=== PATIENT | female | born 1940 | race Asian ===

== ENCOUNTER 2017-11-14 15:14 | Observation (INO) | payer OTHER ==
[~2017-11-14] VITALS: Ht 157.5 cm; Wt 60.9 kg
[2017-11-14] MEDS ORDERED: ONDANSETRON ODT 4 MG PO ONE (16:00)
[2017-11-14 16:09] LABS: BASOPHILS # (AUTO) 0.04 x10^3/uL (0-0.1); BASOPHILS % (AUTO) 1 % (0-1); EOSINOPHILS # (AUTO) 0.02 x10^3/uL (0-0.4); EOSINOPHILS % (AUTO) 0 % (1-7); LYMPHOCYTES # (AUTO) 1.07 x10^3/uL (1-3.4); LYMPHOCYTES % (AUTO) 14 % (22-44); MD NO; MEAN CORPUSCULAR HEMOGLOBIN 28.4 pg (27.0-34.8); MEAN CORPUSCULAR HGB CONC 33.7 g/dL (32.4-35.8); MEAN CORPUSCULAR VOLUME 84.4 fL (80-100); MEAN PLATELET VOLUME 7.4 fL (7.4-10.4); MONOCYTES % (AUTO) 3 % (2-9); NEUTROPHILS # (AUTO) 6.45 x10^3/uL (1.8-6.8); NEUTROPHILS % (AUTO) 83 % (42-75); PLATELET COUNT 249 x10^3/uL (130-400); RED BLOOD COUNT 4.94 x10^6/uL (3.82-5.3); RED CELL DISTRIBUTION WIDTH 13.7 % (9.6-15.2)
[2017-11-14 16:16] LABS: ALANINE AMINOTRANSFERASE 24 U/L (12-78); ALBUMIN 3.7 g/dL (3.4-5.0); ANION GAP 6 mmol/L (5-15); CALCIUM 8.4 mg/dL (8.5-10.1); CHLORIDE 104 mmol/L (98-107); CREATININE 0.76 mg/dL (0.55-1.02)
[2017-11-14 16:21] LABS: ALKALINE PHOSPHATASE 49 U/L (45-117); BILIRUBIN,TOTAL 0.6 mg/dL (0.2-1.0); TROPONIN I < 0.015 ng/mL (0.000-0.045)
[2017-11-14] MEDS ORDERED: ZOLOFT (17:22)
[2017-11-14] MEDS ORDERED: HTN (17:27)
[2017-11-14] MEDS ORDERED: FAMOTIDINE 20 MG/2 ML IVP ONE (17:30)
[2017-11-14] MEDS ORDERED: SODIUM CHLORIDE FLUSH 10ML SYR IVF ONE (17:30)
[2017-11-14] MEDS ORDERED: MAALOX/HYOSCYAMINE/LIDOCAINE 45 ML BTL PO ONE (17:30)
[2017-11-14] MEDS ORDERED: LOPERAMIDE 2 MG CAPSULE PO ONE (17:30)
[2017-11-14] MEDS ORDERED: SODIUM CHLORIDE 0.9% 1,000ML IVBOLUS ONE (17:30)
[2017-11-14] MEDS ORDERED: FAMOTIDINE 20 MG/2 ML ONE (17:41)
[2017-11-14] MEDS ORDERED: ONDANSETRON ODT 4 MG ONE (17:41)
[2017-11-14] MEDS ORDERED: MAALOX/HYOSCYAMINE/LIDOCAINE 45 ML BTL ONE (17:41)
[2017-11-14] MEDS ORDERED: LOPERAMIDE 2 MG CAPSULE ONE (17:42)
[2017-11-14 18:17] LABS: CULTURE INDICATED? YES; MICROSCOPIC INDICATED
[2017-11-14] MEDS ORDERED: SODIUM CHLORIDE 0.9% 1,000 ML IV ONE (20:03)
[2017-11-14] MEDS ORDERED: OMNIPAQUE 350 MG/ML, 100ML BOTTLE ONE (20:03)
[2017-11-14] MEDS ORDERED: morphine SULFATE 10 MG/ML, 1ML IVPush ONE (20:30)
[2017-11-14 22:24] VITALS: BP 130/72
[2017-11-14] MEDS ORDERED: ACETAMINOPHEN 325 MG TABLET PO PRN (22:30)
[2017-11-14] MEDS ORDERED: ALUMINUM/MAG/SIMETHICONE 30 ML UDC PO PRN (22:30)
[2017-11-14] MEDS ORDERED: ENOXAPARIN 40 MG/0.4 ML SQ SCH (22:30)
[2017-11-14] MEDS ORDERED: ONDANSETRON ODT 4 MG PO PRN (22:30)
[2017-11-14] MEDS ORDERED: hydrALAzine 20 MG/ML, 1ML IVPush PRN (22:30)
[2017-11-14] MEDS ORDERED: BISACODYL 10 MG SUPP PR PRN (22:30)
[2017-11-14] MEDS: SODIUM CHLORIDE 0.9% 1,000 ML IV SCH (22:40)
[2017-11-15 02:12] VITALS: BP 109/54
[2017-11-15 06:45] VITALS: BP 111/62
[2017-11-15] MEDS: SODIUM CHLORIDE 0.9% 1,000 ML IV SCH (07:42)
[2017-11-15 13:04] VITALS: BP 120/63
== END 2017-11-15 15:30 | disposition home or self-care (01) ==
LOC: ED 20:37 → UNDOADMOB 21:16 → EDIP 21:16 → INTOOBSV 21:16 → EDIP 22:01 → 3NE 22:09 → EDIP 22:09 → DCLOUNGE 11-15 15:30 → UNDODISOB 11-15 15:30 → 3NE 11-15 15:30
PROVIDERS: ADMIT Hospitalist; ATTEND Hospitalist
DX: K52.9 Noninfective gastroenteritis and colitis, unspecified (principal); I11.9 Hypertensive heart disease without heart failure; G93.41 Metabolic encephalopathy; F32.9 Major depressive disorder, single episode, unspecified; K80.20 Calculus of gallbladder without cholecystitis without obstruction; Z83.3 Family history of diabetes mellitus
CPT/HCPCS: 36415; 74022; 74177; 80053; 81001; 83690; 84484; 85025; 87086; 93005; 96361; 96372; 96374; 99285; G0378; J1650; J7030; Q0162; Q9967; S0028